=== PATIENT | male | born 1955 | race Caucasian/White ===

== ENCOUNTER 2021-05-05 18:58 | Inpatient (IN) | payer OTHER ==
[~2021-05-05] VITALS: Ht 165.1 cm; Wt 103.0 kg
[2021-05-05 21:50] VITALS: BP 152/82
--- NOTE | 2021-05-05 23:23 | NUR ---
ADMISSION NOTE: PT ADMITTED FROM [facility]. HE STATED THAT HE CONTRACTED COVID FROM HIS SISTER WHO WAS IN THE HOSPITAL FOR SURGERY AND BECAME COVID POSITIVE TWO DAYS AFTER VISITING HER IN HOSPITAL. HE IS ALERT AND ORIENTED X4. STRONG, ABLE TO STAND TO URINATE AT SIDE OF THE BED. HE IS CURRENTLY NEEDING 10 LITERS N/C WITH A SATURATION IN THE LOW 90'S. CAREPLAN STARTED. DENIES PAIN DENIES MEDICATION ALLERGIES.
[2021-05-06] VITALS (7 sets, daily range): BP systolic 123–177; BP diastolic 64–88
[2021-05-06] MEDS ORDERED: OMEPRAZOLE40 MG PO (00:42)
[2021-05-06] MEDS ORDERED: GLUCOPHAGE1000 MG PO (00:42)
[2021-05-06] MEDS ORDERED: SIMVASTATIN80 MG PO (00:43)
[2021-05-06] MEDS ORDERED: SILDENAFIL20 MG PO (00:47)
[2021-05-06] MEDS ORDERED: TRANDATE 200 M200 M1 PO (00:48)
[2021-05-06] MEDS ORDERED: LEVOTHYROXINE150 MC1 PO (00:54)
[2021-05-06] MEDS ORDERED: LABETALOL HCL100 MG PO (00:55)
[2021-05-06] MEDS ORDERED: AMARYL4 MG PO (00:56)
[2021-05-06] MEDS ORDERED: LABETALOL HCL300 MG PO (03:52)
--- NOTE | 2021-05-06 04:32 | NUR ---
OXYGEN SATURATION LEVEL TAKES ABOUT 5- 10 MINUTES TO RECOVER AFTER HE SITS AT THE EDGE OF THE BED TO URINATE. HIGH 94% ON THE 10 LITERS CURRENTLY. HE NEEDS REMINDING TO CALL FOR ASSIST WHEN SITTING AT EDGE OF THE BED.
[2021-05-06] MEDS ORDERED: VEKLURY100 MG IV (04:59)
[2021-05-06 05:23] LABS: HEMATOCRIT 36.4 % (42.0-52.0); HEMOGLOBIN 12.3 gm/dL (14.0-18.0); MCH 30.5 pg (26.0-34.0); MCHC 33.9 g/dL (28.0-37.0); MCV 89.9 fL (80.0-100.0); RBC 4.05 mil/uL (4.50-6.00); WBC 8.9 thou/uL (4.0-11.0)
[2021-05-06 05:49] LABS: ALBUMIN 2.5 g/dL (3.4-5.0); CALCIUM 8.5 mg/dL (8.5-10.1); CREATININE 1.1 mg/dL (0.7-1.3); POTASSIUM 4.3 mmol/L (3.5-5.1); TOTAL BILIRUBIN 0.6 mg/dL (0.2-1.0); TOTAL PROTEIN 6.8 g/dL (6.4-8.2)
--- NOTE | 2021-05-06 06:39 | NUR ---
INCREASED OXYGEN LEVEL TO 12 LITERS N/C. RT REPORTED CHANGE TO DR BHATTI.
--- NOTE | 2021-05-06 19:28 | NUR ---
I CALLED PATIENTS SPOUSE NANCY AND INSTRUCTED HER TO CALL HER PHYSICIAN TO TRY TO OBTAIN MONOCLONAL ANTIBODIES PER RECOMMENDATION OF DR CONN. UNDERSTANDS AND WILL CALL HER
[2021-05-07] VITALS (34 sets, daily range): BP systolic 134–179; BP diastolic 58–83
--- NOTE | 2021-05-07 00:04 | NUR ---
TRANSFER TO ICU: PT ON BIPAP 100% MAINTIANING O2 SAT 99-100% WHILE LYING STILL. WHEN HE MOVES TO URINATE OR REPOSTION IN THE BED HE DESATS TO LOW 90'S TO UPPER 80'S, WHILE ON THE BIPAP AT 100%. SPOKE WITH PROVIDER AND TRANSFER TO ICU ORDERED.
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
[2021-05-07 05:18] LABS: ABSOLUTE NEUTROPHILS 13.6 thou/uL (1.4-8.2); BASOPHILS 0.5 % (0.0-2.0); HEMATOCRIT 36.3 % (42.0-52.0); LYMPHOCYTES 2.2 % (24.0-44.0); MCH 30.1 pg (26.0-34.0); MCHC 33.1 g/dL (28.0-37.0); MCV 91.1 fL (80.0-100.0); MONOCYTES 2.7 % (1.0-8.0); PLATELET COUNT 317 thou/uL (150-400); POLYS 94.6 % (36.0-66.0); RBC 3.99 mil/uL (4.50-6.00); RDW 12.8 % (10.5-14.5); WBC 14.4 thou/uL (4.0-11.0)
[2021-05-07 05:30] LABS: D-DIMER 0.76 ug/mLFEU (0.19-0.50)
[2021-05-07 05:34] LABS: INR 1.02; PROTIME 11.1 Seconds (10.5-12.1)
[2021-05-07 05:39] LABS: ALBUMIN 2.4 g/dL (3.4-5.0); CALCIUM 8.2 mg/dL (8.5-10.1); CREATININE 1.1 mg/dL (0.7-1.3); DIRECT BILIRUBIN 0.1 mg/dL (<0.1-0.2); POTASSIUM 4.5 mmol/L (3.5-5.1); TOTAL BILIRUBIN 0.5 mg/dL (0.2-1.0); TOTAL PROTEIN 6.4 g/dL (6.4-8.2)
[2021-05-07 10:41] LABS: FOLIC ACID 23.4 ng/mL (8.6-58.9)
--- NOTE | 2021-05-07 11:42 | NUR ---
ASSUMMED CARE OF THIS PATIENT FROM THE NIGHT NURSE MELANIE AT 0700. PATIENT IS RESTING QUIETLY ON BIPAP WITH O2 SAT IN THE UPPER 90'S AND RESP RATE IN THE 20'S. WILL CONTINUE TO MONITOR.
--- NOTE | 2021-05-07 14:10 | NUR ---
NANCY UPDATED TO THE PATIENT'S STATUS.
--- NOTE | 2021-05-07 14:39 | NUR ---
VAT CONSULTED FOR CVAD, PT'S LABS,MEDS,HX,ORDER AND CONSENT VERIFIED. DISCUSSED BENEFITS AND RISK OF CL ,PT VERBALIZED UNDERSTANDING. RIJ WAS WIDELY PATENT WITH USG. 6FR TL JACC 25CM INSERTED TO 7CM EXTERNAL. PT TOLERATED WELL. STAT CXR ORDERED
--- NOTE | 2021-05-07 15:10 | NUR ---
CXR CONFIRMED PLACEMENT IN DISTAL SVC, RELEASED FOR IMMEDIATE USE PER PROTOCOL TO DOUG LIMA
--- NOTE | 2021-05-07 19:35 | NUR ---
PATIENT IS PROGRESSING SLOWLY TOWARDS OUTCOME GOALS HE IS ABLE TO TOLERATE BEING ON HIGH FLOW O2 WITH SAT IN THE LOWER 90'S. STATES THAT HE FEELS THAT HE IS BREATHING BETTER, DESATS WITH COUGH BUT EASILY RECOVERS, WILL CONTINUE TO MONITOR.
[2021-05-08] VITALS (22 sets, daily range): BP systolic 133–166; BP diastolic 54–114
[2021-05-08 06:01] LABS: HEMATOCRIT 35.7 % (42.0-52.0); HEMOGLOBIN 11.9 gm/dL (14.0-18.0); MCH 30.6 pg (26.0-34.0); MCHC 33.4 g/dL (28.0-37.0); MCV 91.7 fL (80.0-100.0); RBC 3.89 mil/uL (4.50-6.00); RDW 13.2 % (10.5-14.5); WBC 14.9 thou/uL (4.0-11.0)
[2021-05-08 06:06] LABS: GLYCOHEMOGLOBIN (HGB A1C) 6.9 % (4.8-5.6)
[2021-05-08 06:10] LABS: CREATININE 1.1 mg/dL (0.7-1.3); POTASSIUM 4.5 mmol/L (3.5-5.1)
[2021-05-08 06:17] LABS: ALBUMIN 2.3 g/dL (3.4-5.0); CREATININE 1.1 mg/dL (0.7-1.3); DIRECT BILIRUBIN < 0.1 mg/dL (<0.1-0.2); SGOT 19 U/L (15-37); SGPT 22 U/L (16-63); TOTAL BILIRUBIN 0.4 mg/dL (0.2-1.0); TOTAL PROTEIN 5.9 g/dL (6.4-8.2)
--- NOTE | 2021-05-08 07:44 | NUR ---
ORDER FOR EVAL AND TREAT HOWEVER Pt TRANSFERRED TO ICU. WILL PLACE ON HOLD AND AWAIT NEW ORDERS WHEN APPROPRIATE
--- NOTE | 2021-05-08 09:38 | NUR ---
Chart review. Discussed during am rounds. Unable to visit with nita related to isolation + COVID. from [facility] [place]. Bipap and High flow O2. IV medication and Remdesivir . Will cont following as needed for dc needs.
[2021-05-08 19:07] LABS: HIV ANTIBODY Non Reactive (Non Reactive)
[2021-05-09] VITALS (28 sets, daily range): BP systolic 136–214; BP diastolic 58–100
[2021-05-09 04:30] LABS: ALBUMIN 2.2 g/dL (3.4-5.0); CALCIUM 8.1 mg/dL (8.5-10.1); DIRECT BILIRUBIN 0.1 mg/dL (<0.1-0.2); POTASSIUM 4.5 mmol/L (3.5-5.1); TOTAL BILIRUBIN 0.5 mg/dL (0.2-1.0); TOTAL PROTEIN 5.6 g/dL (6.4-8.2)
[2021-05-09 04:33] LABS: ABSOLUTE NEUTROPHILS 12.7 thou/uL (1.4-8.2); BASOPHILS 0.2 % (0.0-2.0); HEMATOCRIT 35.8 % (42.0-52.0); HEMOGLOBIN 11.8 gm/dL (14.0-18.0); LYMPHOCYTES 1.8 % (24.0-44.0); MCH 29.9 pg (26.0-34.0); MCV 90.4 fL (80.0-100.0); MONOCYTES 2.8 % (1.0-8.0); PLATELET COUNT 348 thou/uL (150-400); POLYS 95.2 % (36.0-66.0); RBC 3.96 mil/uL (4.50-6.00); WBC 13.4 thou/uL (4.0-11.0)
[2021-05-09 04:43] LABS: BE(vivo) 0.4 mmol/L (-2 to +3); HCO3 24.3 mmol/L (22.0-26.0); PCO2 36.7 mmHg (35.0-45.0); PO2 70.8 mmHg (80.0-100.0); pH 7.438 (7.360-7.450); sO2 94.9 % (92.0-98.0)
--- NOTE | 2021-05-09 05:45 | NUR ---
Patient stable throughout night. Up to bedside commode to have a bowel movement. SOB but did not desaturate with activity. Tolerated bipap well overnight. Still requiring heavy oxygenation assistance and is therefore not progressing towards goals.
[2021-05-10] VITALS (26 sets, daily range): BP systolic 106–182; BP diastolic 50–88
--- NOTE | 2021-05-10 02:26 | NUR ---
ASSESSMENT: PT REMAIN ALERT AND ORIENT TIMES FOUR. UP WITH SBA TO BSC. VSS, AFEBRILE. SR PER MONITOR. DENIES PAIN. SOB WITH EXERTION. OPITFLO DURING THE DAY AND BIPAP DURING THE NIGHT. TOLERATING BOTH WELL. VOIDING PER URINAL, ADEQUATE UO. 1 BM THIS SHIFT. REMAINS IN ISOLATION FOR + COVID. RIGHT IJ INTACT, DRESSING INTACT. GOOD PROGRESS TOWARDS DC GOALS., WILL CONTINUE TO MONITOR.
[2021-05-10 06:09] LABS: ALBUMIN 2.4 g/dL (3.4-5.0); CREATININE 1.1 mg/dL (0.7-1.3); DIRECT BILIRUBIN 0.1 mg/dL (<0.1-0.2); TOTAL BILIRUBIN 0.7 mg/dL (0.2-1.0); TOTAL PROTEIN 5.8 g/dL (6.4-8.2)
--- NOTE | 2021-05-10 10:41 | NUR ---
PATIENT CURRENT ON OPT, FLOW 50L 70% PATIENT MAINTAINING SAT GREATER THAN 92%.BIPAP ON STANDBY IN DAY. PATIENT WEARS AT NIGHT. NO COMPLAINTS OF SHORTNESS OF BREATH. PATIENT APPEARS COMFORTABLE
--- NOTE | 2021-05-10 13:39 | NUR ---
Discussed during am rounds and los, possible be able to move out of icu soon. + covid. Cont to use bipap at hs and opitflo during the day. will cont following as needed for dc needs.
[2021-05-10 14:20] LABS: T-SPOT.TB Negative
[2021-05-11] VITALS (24 sets, daily range): BP systolic 109–174; BP diastolic 64–102
[2021-05-11 07:48] LABS: ALBUMIN 2.5 g/dL (3.4-5.0); CREATININE 1.1 mg/dL (0.7-1.3); DIRECT BILIRUBIN 0.2 mg/dL (<0.1-0.2); TOTAL BILIRUBIN 0.9 mg/dL (0.2-1.0); TOTAL PROTEIN 5.7 g/dL (6.4-8.2)
--- NOTE | 2021-05-11 10:36 | NUR ---
Assess for length of stay. Admit with COVID+ pneumonia. Requires Bipap and Optiflo. Able to take po and eating 50-100%. BG 178-304-hx dm and on steroid, receives diabetic medications. Continue carb control diet. Low nutrition risk
[2021-05-12] VITALS (11 sets, daily range): BP systolic 125–169; BP diastolic 62–83
[2021-05-12 03:43] LABS: HEMATOCRIT 37.9 % (42.0-52.0); HEMOGLOBIN 12.6 gm/dL (14.0-18.0); MCH 29.9 pg (26.0-34.0); MCHC 33.2 g/dL (28.0-37.0); MCV 90.3 fL (80.0-100.0); RBC 4.19 mil/uL (4.50-6.00); RDW 12.8 % (10.5-14.5); WBC 10.8 thou/uL (4.0-11.0)
[2021-05-12 03:55] LABS: ALBUMIN 2.5 g/dL (3.4-5.0); DIRECT BILIRUBIN 0.2 mg/dL (<0.1-0.2); TOTAL PROTEIN 5.6 g/dL (6.4-8.2)
--- NOTE | 2021-05-12 04:46 | NUR ---
ASSUMED CARE AT 1900. RT DECREASED O2 ON OPTIFLO TO 40% AND 40L; PT STATES GOAL FOR SATURDAY IS TO BE ON A REGULAR NC AND BE UP WALKING AROUND IN THE ROOM TO IMPROVE STRENGTH AND STAMINA. REPORTS SLIGHT HEADACHE, GAVE TYLENOL W/HS MEDS. EDUCATED ABOUT CHANGE TO INSULIN DOSING. NO OTHER CONCERNS, PROGRESSING TOWARDS GOALS.
--- NOTE | 2021-05-12 10:51 | NUR ---
SPOKE WITH PATIENT'S , NANCY, FROM [id number] AND SHE WAS INFORMED OF PATIENT'S NEW ROOM NUMBER AND WAS ALSO UPDATED ON THE PATIENT'S CONDITION.
--- NOTE | 2021-05-12 11:54 | NUR ---
Discussed during am rounds and los. + COVID. Cont. to require BIPAP at hs and 8L o2 during the day. Passed on that he doesn't have machine to check his blood sugar at home. ARTEMIO spoke with his adan via phone call. education on [employer] kit and she stated she will pick on up for him before comes home and would like to talk with the dr on how his lungs are doing. Cm passed on information to [facility]. No anticipated dc over the weekend, will cont. following as needed for dc needs.
--- NOTE | 2021-05-12 13:58 | NUR ---
PT TRANSFERRED FROM ICU TO ROOM 355. ALERT AND ORIENTED X4, DENIES ANY CHEST PAIN, NAUSEA AND VOMITTING. ON 6L OF OXYGEN, SOB WITH EXERTION. NO SIGNS OF DISTRESS NOTED. UP IN CHAIR, PT USES URINAL OR COMMODE. PLACED ON TELE DUE TO BRADYCARDIA. DENIES ANY NEEDS MELIA. WILL CONTINUE TO MONITOR
--- NOTE | 2021-05-12 23:20 | NUR ---
PT ALERT AND ORIENTED X4. VSS AFEBRILE. NO S/S DISRESS ON 4.5 L SO FAR TOMIGHT. DENIED PAIN. BED DOWN CALL LIGHT IN REACH. BED ALARM ON. RT WILL PLACE ON BIPAP.
[2021-05-13 03:26] VITALS: BP 156/78
[2021-05-13 05:04] LABS: HEMATOCRIT 37.6 % (42.0-52.0); HEMOGLOBIN 12.8 gm/dL (14.0-18.0); MCH 30.6 pg (26.0-34.0); MCV 89.8 fL (80.0-100.0); RBC 4.18 mil/uL (4.50-6.00); RDW 13.3 % (10.5-14.5); WBC 11.4 thou/uL (4.0-11.0)
--- NOTE | 2021-05-13 05:08 | NUR ---
VSS. PT PROGRESSING TOWARDS D/C GOALS. BS DIMINISHED UNLABORED PRESENTLY ON 2LNC. HE STATED HIS BREATHING IS DOING MUCH BETTER. BIPAP IS ON PRESENTLY. NO S/S RESP DISTRESS.
[2021-05-13 05:20] LABS: ALBUMIN 2.7 g/dL (3.4-5.0); DIRECT BILIRUBIN 0.3 mg/dL (<0.1-0.2); POTASSIUM 4.7 mmol/L (3.5-5.1); TOTAL BILIRUBIN 1.1 mg/dL (0.2-1.0); TOTAL PROTEIN 5.6 g/dL (6.4-8.2)
[2021-05-13 07:31] VITALS: BP 180/85
--- NOTE | 2021-05-13 12:40 | NUR ---
ASSUMED PT CARE AT SHIFT CHANGE, CLARIFIED WITH DR SETHI RE: TELEMETRY. PT HAS HAD TELEMETRY ON, NO ORDER. DR SETHI STATED TELEMETRY IS NOT NECESSARY AT THIS TIME. PT FINISHED 06/25 DOSE OF REMDESIVER. PT HAS OXYGEN EXTENSION TUBING IN PLACE AND IS ABLE TO AMBULATE TO REST ROOM AD JENNIFER. PT HAS NO CONCERNS AT THIS TIME.
[2021-05-13 16:09] VITALS: BP 139/60
[2021-05-13 20:00] VITALS: BP 135/72
--- NOTE | 2021-05-13 21:33 | NUR ---
PT ALERT AND ORIENTED X4. VSS . NO C/O SOA ON 3LNC. NO S/S DISTRESS. PT WATCHING TV READY FOR BED. BED DOWN CALL LIGHT IN REACH. PROGRESSING WELL TOWARDS D/C GOALS.
[2021-05-14 04:31] VITALS: BP 169/82
--- NOTE | 2021-05-14 05:19 | NUR ---
PT PROGRESSING TOWARDS D/C GOALS. VSS AFEBRILE. NO C/O PAIN. NO SOA. SATS WNL. UNLABORED ON O2 3LNC. LUNGS SOUND CLEARER TODAY. AMBULATES TO BR WITH STEADY GAIT. NO S/S DISTRESS TONIGHT.
[2021-05-14 07:56] VITALS: BP 144/83
--- NOTE | 2021-05-14 11:06 | NUR ---
ASSUMED PT CARE AT SHIFT CHANGE, PT DID NOT WEAR BIPAP AT NIGHT. OXYGEN SATS ARE WNL. CONTINUOUS PULSE OX WAS DC'D BY RT. GOAL IS FOR PT TO POSSIBLY DC TOMORROW WITH NO OXYGEN NEEDS. RT WILL PERFORM WALKING PULSE OX LATER TODAY. PT HAS NO COMPLAINTS, STATES HE IS READY TO GO HOME.
[2021-05-14 16:11] VITALS: BP 143/71
[2021-05-14 20:07] VITALS: BP 139/79
--- NOTE | 2021-05-14 22:50 | NUR ---
PT PROGRESSING WELL TOWARDS D/C GOALS. VSS AFEBRILE. UNLABORED ON 1LNC. PT EXCITED TO BE GOING HOME TOMORROW IF HE PASSES THE DESAT WALKING STUDY. NO S/S DISTRESS. DENIED PAIN. PT AMBULATES IN ROOM TO BR WITH GOOD STEADY GAIT. NO SOA.
[2021-05-15 05:48] VITALS: BP 147/76
--- NOTE | 2021-05-15 06:39 | NUR ---
PROGRESSING TOWARDS D/C GOALS. VSS AFEBRILE. PT GOING HOME IF PASSES WALKING SATURATION TEST. NO C/O PAIN. NO C/C DISRESS.
[2021-05-15 07:48] VITALS: BP 156/78
[2021-05-15] MEDS ORDERED: ACEROLA C500 MG PO (11:49)
[2021-05-15] MEDS ORDERED: VENTOLIN HFA 1818 GM INH (11:49)
[2021-05-15] MEDS ORDERED: VITAMIN D325 MC1 PO (11:49)
[2021-05-15] MEDS ORDERED: ELIQUIS5 MG PO (11:49)
[2021-05-15] MEDS ORDERED: LANTUS SUBQ ×2 (11:49→11:54)
[2021-05-15] MEDS ORDERED: CLONIDINE HCL0.3 M3 PO (11:49)
[2021-05-15] MEDS ORDERED: VITAMIN B-1100 M2 PO (11:49)
[2021-05-15 11:50] VITALS: BP 156/78
[2021-05-15] MEDS ORDERED: HUMALOG100 UNIT/1 SUBQ (11:54)
[2021-05-15] MEDS ORDERED: ZESTRIL5 MG PO (11:54)
--- NOTE | 2021-05-15 11:57 | NUR ---
DISCHARGE NOTE: HANNA reviewed chart and spoke with nursing and attending physician. Pt is in Enhanced Isolation due to COVID. Pt transferred to 3W from ICU on Saturday. Pt is medically stable for discharge home today with Home O2. HANNA placed call to pt's room to discuss discharge plan. No answer. HANNA spoke with pt's , Ricarda, via phone. Discussed need for home O2. Options for DME companies provided. No preference voiced. HANNA confirmed pt's home address and phone number. SW also discussed HH services. Pt's would like pt to have HH. Options provided. No preference voiced. Pt's sister last week from COVID and her is this afternoon. Pt's family will be able to provide transportation home later today. HANNA explained that portable O2 tank will be delivered to the hospital. Pt/family to contact [facility] to have additional home O2 equipment delivered. Pt's verbalized understanding. HANNA faxed info and testing to [facility]. Notified [facility] liaison, who will deliver portable O2 tank. HANNA faxed referral to [facility]. Notified liaison. Awaiting script for O2 and discharge ppwk. Contact info for [facility] and [facility] placed in pt's discharge summary. HANNA is following to finalize discharge plan.
[2021-05-15 15:25] VITALS: BP 149/84
--- NOTE | 2021-05-15 16:22 | NUR ---
RN ASSUMED PT'S CARE AT 0700AM, PT IS A&OX4, PT'S SOB AND COVID INFECTION HAVE IMPROVED, PT 'S VS ARE STABLE, PT IS ON O2 2L/MIN/NC, PT CAN WALK HIS ROOM WITHOUT ASSIST, RN RECEIVED ORDER TO DC PT TO HOME WITH O2, WE WAIT FOR O2 TO PT FOR TRANSPORTATION TO HOME. PT'S FAMILY HAS NOTIFIED ABOUT PT DC TO HOME.
--- NOTE | 2021-05-15 19:30 | NUR ---
PT UNDERSTANDED DC TEACHING WELL, PT HAS NEW O2 TANK WITH HIM TO TAKE HOME, RN HAS TEACHING PT HOW TO CONTACT HOME HEALTH SERVICE TOMORROW, COIN MACHINE SERVICER REPAIRER SEND PT TO PT'S CAR AT 1820PM.
== END 2021-05-15 18:49 | disposition home health service (06) | DRG 871 ==
LOC: 3W 18:58 → ICU 22:04 → 3W 05-12 11:44
PROVIDERS: Internal Medicine Pulmonary Disease; Nurse Practitioner Family; Pediatrics; Specialist; ADMIT Hospitalist; ATTEND Hospitalist
PROC: 5A0935A Assistance with Respiratory Ventilation, Less than 24 Consecutive Hours, High Flow/Velocity Cannula (ICD-10-PCS; principal; 2021-05-05)
PROC: 5A09357 Assistance with Respiratory Ventilation, Less than 24 Consecutive Hours, Continuous Positive Airway Pressure (ICD-10-PCS; 2021-05-06)
PROC: XW033E5 Introduction of Remdesivir Anti-infective into Peripheral Vein, Percutaneous Approach, New Technology Group 5 (ICD-10-PCS; 2021-05-06)
PROC: 5A0935A Assistance with Respiratory Ventilation, Less than 24 Consecutive Hours, High Flow/Velocity Cannula (ICD-10-PCS; 2021-05-06)
PROC: 5A09357 Assistance with Respiratory Ventilation, Less than 24 Consecutive Hours, Continuous Positive Airway Pressure (ICD-10-PCS; 2021-05-07)
PROC: B548ZZA Ultrasonography of Superior Vena Cava, Guidance (ICD-10-PCS; 2021-05-07)
PROC: 5A0935A Assistance with Respiratory Ventilation, Less than 24 Consecutive Hours, High Flow/Velocity Cannula (ICD-10-PCS; 2021-05-07)
PROC: 02HV33Z Insertion of Infusion Device into Superior Vena Cava, Percutaneous Approach (ICD-10-PCS; 2021-05-07)
PROC: 5A0935A Assistance with Respiratory Ventilation, Less than 24 Consecutive Hours, High Flow/Velocity Cannula (ICD-10-PCS; 2021-05-08)
PROC: 5A09357 Assistance with Respiratory Ventilation, Less than 24 Consecutive Hours, Continuous Positive Airway Pressure (ICD-10-PCS; 2021-05-08)
PROC: 5A0935A Assistance with Respiratory Ventilation, Less than 24 Consecutive Hours, High Flow/Velocity Cannula (ICD-10-PCS; 2021-05-09)
PROC: 5A09357 Assistance with Respiratory Ventilation, Less than 24 Consecutive Hours, Continuous Positive Airway Pressure (ICD-10-PCS; 2021-05-09)
PROC: 5A0935A Assistance with Respiratory Ventilation, Less than 24 Consecutive Hours, High Flow/Velocity Cannula (ICD-10-PCS; 2021-05-10)
PROC: 5A09357 Assistance with Respiratory Ventilation, Less than 24 Consecutive Hours, Continuous Positive Airway Pressure (ICD-10-PCS; 2021-05-10)
PROC: 5A0935A Assistance with Respiratory Ventilation, Less than 24 Consecutive Hours, High Flow/Velocity Cannula (ICD-10-PCS; 2021-05-11)
PROC: 5A09357 Assistance with Respiratory Ventilation, Less than 24 Consecutive Hours, Continuous Positive Airway Pressure (ICD-10-PCS; 2021-05-11)
PROC: 5A0935A Assistance with Respiratory Ventilation, Less than 24 Consecutive Hours, High Flow/Velocity Cannula (ICD-10-PCS; 2021-05-12)
PROC: 5A09357 Assistance with Respiratory Ventilation, Less than 24 Consecutive Hours, Continuous Positive Airway Pressure (ICD-10-PCS; 2021-05-12)
PROC: 5A0935A Assistance with Respiratory Ventilation, Less than 24 Consecutive Hours, High Flow/Velocity Cannula (ICD-10-PCS; 2021-05-13)
PROC: 5A09357 Assistance with Respiratory Ventilation, Less than 24 Consecutive Hours, Continuous Positive Airway Pressure (ICD-10-PCS; 2021-05-13)
PROC: 5A0935A Assistance with Respiratory Ventilation, Less than 24 Consecutive Hours, High Flow/Velocity Cannula (ICD-10-PCS; 2021-05-14)
DX: A41.9 Sepsis, unspecified organism (principal); U07.1 COVID-19; J12.82 Pneumonia due to coronavirus disease 2019; J80 Acute respiratory distress syndrome; E78.5 Hyperlipidemia, unspecified; E03.9 Hypothyroidism, unspecified; E11.22 Type 2 diabetes mellitus with diabetic chronic kidney disease; I12.9 Hypertensive chronic kidney disease with stage 1 through stage 4 chronic kidney disease, or unspecified chronic kidney disease; M79.7 Fibromyalgia; E11.42 Type 2 diabetes mellitus with diabetic polyneuropathy; E66.9 Obesity, unspecified; M19.90 Unspecified osteoarthritis, unspecified site; E11.65 Type 2 diabetes mellitus with hyperglycemia; N18.30 Chronic kidney disease, stage 3 unspecified; D64.9 Anemia, unspecified; R65.20 Severe sepsis without septic shock; F32.9 Major depressive disorder, single episode, unspecified; F41.9 Anxiety disorder, unspecified; Z68.37 Body mass index [BMI] 37.0-37.9, adult; Z88.8 Allergy status to other drugs, medicaments and biological substances; Z79.84 Long term (current) use of oral hypoglycemic drugs; Z79.899 Other long term (current) drug therapy; Z80.42 Family history of malignant neoplasm of prostate
CPT/HCPCS: 10078; 10779